=== PATIENT | female | born 1990 ===

== ENCOUNTER 2020-04-27 19:07 | Inpatient (IN) ==
[2020-04-27 20:42] LABS: Basophils # (auto) 0.01 K/uL (0-0.2); Basophils % (auto) 0.1 %; Eosinophils # (auto) 0.01 K/uL (0-0.5); Eosinophils % (auto) 0.1 %; Hematocrit (blood only) 32.1 % (37-47); Hemoglobin 10.8 g/dL (12.0-16.0); Immature Granulocytes # (auto) 0.18 K/uL (0.00-0.02); Immature Granulocytes % (auto) 1.4 %; Lymphocytes # (auto) 1.41 K/uL (1.2-3.4); Lymphocytes % (auto) 11.4 %; Mean Corpuscular Hemoglobin 30.3 pg (25-34); Mean Corpuscular Volume 89.9 fL (80-100); Mean Platelet Volume 11.3 fL (7.4-10.4); Monocytes # (auto) 0.18 K/uL (0.11-0.59); Monocytes % (auto) 1.4 %; Neutrophils # (auto) 10.63 K/uL (1.4-6.5); Neutrophils % (auto) 85.6 %; Platelet Count 216 K/uL (130-400); RDW Coefficient of Variation 12.1 % (11.5-14.5); RDW Standard Deviation 39.6 fL (36.4-46.3); Red Blood Count 3.57 M/uL (4.2-5.4); White Blood Count 12.42 K/uL (4.8-10.8)
[2020-04-27 21:02] LABS: Alanine Aminotransferase 21 U/L (12-78); Albumin Level 2.4 gm/dl (3.4-5.0); Alkaline Phosphatase 161 U/L (45-117); Aspartate Aminotransferase 20 U/L (15-37); Bilirubin Direct < 0.1 mg/dl (0-0.2); Bilirubin,Total 0.1 mg/dl (0.2-1)
[2020-04-27 21:26] LABS: Mean Corpuscular Hgb Conc 33.6 g/dL (32-36)
[2020-04-27] MEDS ORDERED: OXYTOCIN 30 UNITS/500 ML BAG IV PRN (21:29)
[2020-04-28] MEDS ORDERED: miSOPROStoL 50 MCG TAB PO SCH (05:00)
--- NOTE | 2020-04-28 09:24 | Obstetrical Progress Note ---
Date of Service April 28, 2020 Assessment & Plan Admission and Anticipated Discharge Date Admission Date: April 27, 2020 Subjective Met pt and reviewed PNC Preeclampsia, meeting severe criteria with BP, and headaches on admission' Pt has BMTZ series. Pt had discussion with DR Pryor discussed with pt again this morning Induction with pt Pt agrees with recommendation will start induction , labs ordered will add magnesium if pt becomes symptomatic Results & Data ([facility]) Vital Signs (Past 12 Hours) Vital Signs Temp Pulse Resp BP 04/28/20 08:47 57 L 160/90 H 04/28/20 07:47 64 165/95 H 04/28/20 07:10 71 136/86 04/28/20 06:47 59 L 155/86 H 04/28/20 05:47 54 L 150/86 H 04/28/20 04:47 63 133/86 04/28/20 03:48 57 L 135/82 04/28/20 03:38 36.9 C 16 04/28/20 03:35 16 04/28/20 02:47 83 145/81 H 04/28/20 01:47 67 136/80 04/28/20 01:14 67 147/79 H 04/28/20 01:09 67 161/103 H 04/28/20 00:47 57 L 181/104 H 04/27/20 23:47 67 140/78 04/27/20 23:10 36.6 C 62 18 142/92 H 04/27/20 22:47 70 158/101 H 04/27/20 21:34 66 135/81 04/27/20 21:24 64 142/83 H
[2020-04-28 09:34] LABS: Hematocrit (blood only) 36.1 % (37-47); Hemoglobin 12.1 g/dL (12.0-16.0); Mean Corpuscular Hemoglobin 30.6 pg (25-34); Mean Corpuscular Volume 91.2 fL (80-100); Mean Platelet Volume 11.4 fL (7.4-10.4); Nucleated RBC # (auto) 0.02 K/uL (0-0); Nucleated RBC % (auto) 0.1 %; Platelet Count 258 K/uL (130-400); RDW Coefficient of Variation 12.3 % (11.5-14.5); RDW Standard Deviation 41.1 fL (36.4-46.3); Red Blood Count 3.96 M/uL (4.2-5.4); White Blood Count 11.62 K/uL (4.8-10.8)
[2020-04-28 09:36] LABS: Mean Corpuscular Hgb Conc 33.5 g/dL (32-36)
[2020-04-28 09:56] LABS: Albumin Level 2.7 gm/dl (3.4-5.0); BUN Creatinine Ratio 16.9 (10-20); Calcium 8.9 mg/dl (8.5-10.1); Creatinine Clr Calc Pharmacy 110.5 ml/min; Est GFR (African American) 117.2; Est GFR (Non-African American) 101.2; Potassium 4.4 mmol/L (3.5-5.1)
[2020-04-28 09:59] LABS: Albumin Globulin Ratio 0.7 (0.9-2); Bilirubin,Total 0.2 mg/dl (0.2-1); Total Protein 6.7 gm/dl (6.4-8.2)
[2020-04-28] MEDS ORDERED: miSOPROStoL 50 MCG TAB ONE (10:33)
[2020-04-28] MEDS: miSOPROStoL 50 MCG TAB PO SCH ×3 (10:39→21:43)
[2020-04-28 11:10] LABS: Protein Creatinine Ratio Urine 2.6 (0-0.2); Total Protein Urine Random 455.2 mg/dl (0-11.9)
--- NOTE | 2020-04-28 13:34 | History and Physical Report ---
DATE OF ADMISSION: 04/27/2020 HISTORY OF PRESENT ILLNESS: The patient is a 30-year-old 1, para 0. General health is good. She is being followed by the [facility] for care and delivery. Her due date is 05/28/2020. She has been followed for elevated blood pressure for about the past 2-3 weeks. She was seen at [place] about a week ago for a growth scan, said the baby was symmetrical, but small. She has recently had Celestone, an injection on 04/26 and another injection on 04/27. She has followed her blood pressures at home. She called after having 2 consecutive high blood pressures associated with headaches, diastolics over 100. She was told to come into the hospital for evaluation. ALLERGIES: SHE IS ALLERGIC TO CIPRO. PAST SURGICAL HISTORY: She had wisdom teeth removed. She had a carpal tunnel syndrome. She has had kidney stones. SOCIAL HISTORY: She is not a smoker. She has no history of excessive alcohol intake. She works on a farm. FAMILY HISTORY: Her mom is 60, her health is unknown. Father is 60, had colon cancer. Has one brother in good health. REVIEW OF SYSTEMS: HEAD: No symptoms of frequent or severe headaches. EYES: No symptoms of blurred vision, double vision. EARS: No symptoms of frequent ear infection, difficulty hearing. PHYSICAL EXAMINATION: GENERAL: Well-developed, well-nourished, 30-year-old white female, alert, oriented x3 and cooperative, in no acute distress, appears her stated age. EYES: Conjunctivae are pink. Sclerae white, no evidence of jaundice. EARS: Had normal light reflex bilaterally. NOSE: Had normal mucosa. Septum is midline. There were no polyps. THROAT: No erythema or evidence of infection. Teeth are in good state of repair. HEART: Had regular rhythm. S1, S2 are normal. ABDOMEN: Soft and nontender, consistent with a 36-week size fetus. No CVA tenderness. MUSCULOSKELETAL: Revealed no calf tenderness. PELVIC: Vertex presentation well applied to the cervix. Cervix was soft, posterior 1.5 cm. Head was about a -2 station. IMPRESSIONS OF THIS CASE: Worsening toxemia of , status post wisdom teeth, status post carpal tunnel, status post kidney stones, intrauterine [address] [facility]
[2020-04-28] MEDS ORDERED: hydrALAZINE HCL 20 MG/ML VIAL IV STA (17:22)
[2020-04-28] MEDS ORDERED: PENICILLIN G POTASSIUM 6 MU in DEXTROSE 5% 250 ML IV ONE (17:45)
[2020-04-28] MEDS ORDERED: MAG SULFATE 4GM BOLUS FROM BAG IV ONE (17:45)
[2020-04-28] MEDS: MAGNESIUM SULFATE / WTR 40 GM/1,000 ML BAG IV SCH ×2 (17:53→18:25)
[2020-04-28] MEDS ORDERED: OXYTOCIN 30 UNITS/500 ML BAG IV PRN (18:06)
[2020-04-28 18:16] LABS: Hematocrit (blood only) 33.9 % (37-47); Hemoglobin 11.3 g/dL (12.0-16.0); Mean Corpuscular Hemoglobin 30.1 pg (25-34); Mean Corpuscular Volume 90.2 fL (80-100); Mean Platelet Volume 11.5 fL (7.4-10.4); Nucleated RBC # (auto) 0.04 K/uL (0-0); Nucleated RBC % (auto) 0.4 %; Platelet Count 240 K/uL (130-400); RDW Coefficient of Variation 12.3 % (11.5-14.5); Red Blood Count 3.76 M/uL (4.2-5.4); White Blood Count 10.05 K/uL (4.8-10.8)
[2020-04-28 18:17] LABS: Mean Corpuscular Hgb Conc 33.3 g/dL (32-36)
[2020-04-28] MEDS: LACTATED RINGER'S 1,000 ML IV PRN (18:25)
[2020-04-28 18:27] LABS: Albumin Level 2.5 gm/dl (3.4-5.0); BUN Creatinine Ratio 21.9 (10-20); Calcium 8.3 mg/dl (8.5-10.1); Creatinine Clr Calc Pharmacy 130.3 ml/min; Est GFR (African American) 137.7; Est GFR (Non-African American) 118.8
[2020-04-28 18:29] LABS: Albumin Globulin Ratio 0.7 (0.9-2); Bilirubin,Total 0.2 mg/dl (0.2-1); Globulin 3.8 gm/dl (2.5-4.0); Total Protein 6.3 gm/dl (6.4-8.2)
[2020-04-28] MEDS ORDERED: PENICILLIN G POTASSIUM 3 MU in DEXTROSE 5% 100 ML IV PRN (21:45)
[2020-04-28] MEDS: ACETAMINOPHEN 325 MG TAB PO PRN (21:57)
--- NOTE | 2020-04-28 23:26 | Obstetrical Progress Note ---
Date of Service April 28, 2020 Assessment & Plan Admission and Anticipated Discharge Date Admission Date: April 27, 2020 Subjective Pt doing well Severe Preeclampsia on Magnesium FHR; CAT1 Ctx 2-5mins PIt: 9MU VE; 4/50/-2 AROM with Amnio hook continue Pitocin augmentation Results & Data ([facility]) Vital Signs (Past 12 Hours) Vital Signs Temp Pulse Resp BP 04/28/20 23:09 77 133/80 04/28/20 23:00 18 04/28/20 22:39 76 129/79 04/28/20 22:09 70 134/82 04/28/20 22:00 20 04/28/20 21:39 79 136/90 04/28/20 21:09 81 134/85 04/28/20 21:00 18 04/28/20 20:39 77 134/86 04/28/20 20:10 79 144/91 H 04/28/20 20:00 18 04/28/20 19:42 18 04/28/20 19:39 77 134/81 04/28/20 19:30 36.5 C 18 04/28/20 19:10 78 147/85 H 04/28/20 19:09 106 H 145/102 H 04/28/20 18:49 85 143/90 H 04/28/20 18:34 74 139/86 04/28/20 18:30 36.6 C 79 20 144/87 H 04/28/20 18:24 85 142/90 H 04/28/20 18:19 86 137/93 04/28/20 18:14 80 137/81 04/28/20 18:09 74 139/82 04/28/20 18:04 97 H 142/89 H 04/28/20 17:58 75 142/89 H 04/28/20 17:55 70 149/95 H 04/28/20 17:52 70 149/93 H 04/28/20 17:49 71 155/99 H 04/28/20 17:46 70 146/93 H 04/28/20 17:43 70 150/95 H 04/28/20 17:40 63 153/94 H 04/28/20 17:35 62 171/102 H 04/28/20 17:18 58 L 182/92 H 04/28/20 17:14 87 20 158/118 H 04/28/20 17:08 76 169/102 H 04/28/20 16:38 59 L 16 171/96 H 04/28/20 16:08 61 152/94 H 04/28/20 15:38 56 L 150/93 H 04/28/20 15:08 58 L 159/94 H 04/28/20 15:00 36.8 C 20 04/28/20 14:38 64 169/92 H 04/28/20 14:23 67 16 139/90 04/28/20 13:46 63 173/93 H 04/28/20 13:38 65 185/102 H 04/28/20 13:08 60 182/97 H 04/28/20 12:38 64 163/89 H 04/28/20 12:08 69 143/91 H 04/28/20 11:38 84 20 136/87
[2020-04-29] MEDS ORDERED: ePHEDrine sulfate 50 MG/ML AMP ONE (00:15)
[2020-04-29] MEDS ORDERED: SODIUM CHLORIDE 0.9% INJ 10 ML VIAL ONE (00:15)
[2020-04-29] MEDS ORDERED: fentaNYL 2MCG/ML ROPIVACAINE 1.25MG/ML 100 ML BAG EPI ONE (00:16)
[2020-04-29] MEDS ORDERED: fentaNYL citrate 100 MCG/2 ML VIAL ONE (00:16)
[2020-04-29] MEDS ORDERED: BUPIVACAINE 0.25% 30 ML VIAL ONE (00:16)
[2020-04-29] MEDS ORDERED: NALOXONE HCL 1 MG in SODIUM CHLORIDE 0.9% 1000ML 1,000 ML IV PRN (00:24)
[2020-04-29] MEDS ORDERED: ONDANSETRON INJ 2 MG/ML 2 ML VIAL IV PRN (00:24)
[2020-04-29] MEDS ORDERED: ePHEDrine sulfate 50 MG/ML AMP IV PRN (00:24)
[2020-04-29] MEDS ORDERED: fentaNYL 2MCG/ML ROPIVACAINE 1.25MG/ML 100 ML BAG EPI PRN (00:24)
[2020-04-29] MEDS ORDERED: NALOXONE HCL 0.4 MG/1 ML VIAL/CARP IV PRN (00:24)
[2020-04-29] MEDS ORDERED: diphenhydrAMINE 50 MG/ML VIAL IV PRN (00:24)
--- NOTE | 2020-04-29 00:26 | Anesthesiology Consultation ---
Date of Service April 29, 2020 Assessment & Plan (1) Encounter for pre-operative examination: Chart Review Chart Review: Patient NOT seen in Pre Admission Testing and Acceptable Risk for Labor Epidural Consults Requested none History Height/Weight Height: 5 ft 5 in Weight: 81.1 kg Allergies Allergy/AdvReac Type Severity Reaction Status Date / Time ciprofloxacin [From Cipro] Allergy Hives Verified 04/27/20 20:40 shellfish derived Allergy Anaphylaxis Verified 04/28/20 09:07 Medications Home Medications Medication Instructions Recorded Confirmed Last Taken prenat.vits,chriss,qaz-pcmi-wovin 1 tab PO DAILY 04/27/20 04/27/20 04/26/20 21:00 [ Vitamin] Active Medications Generic Name Dose Route Start Last Admin Trade Name Freq PRN Reason Stop Dose Admin Acetaminophen 650 mg 04/28/20 21:33 04/28/20 21:57 Acetaminophen 325 Mg Tab PO 05/28/20 21:32 650 mg Q4H PRN Administration Headache or Pain Lactated Ringer's 1,000 mls @ 125 mls/hr 04/27/20 21:29 04/28/20 19:01 Lr IV 04/29/20 21:28 75 mls/hr .Q8H PRN Infusion L&D Protocol Protocol Penicillin G Potassium 3 mu/ 106 mls @ 100 mls/hr 04/28/20 21:45 04/28/20 23:36 Dextrose IV 05/08/20 21:44 100 mls/hr Q4H PRN Administration Give until delivery Magnesium Sulfate 40 gm in 1,000 mls @ 50 mls/hr 04/28/20 17:45 04/28/20 18:25 Magnesium Sulfate / Wtr IV 05/28/20 17:44 50 mls/hr .Q20H LAURIE Administration Oxytocin 30 units in 500 mls @ 8 mls/hr 04/28/20 18:06 04/28/20 22:00 Pitocin IV 05/28/20 18:05 0.48 units/hr .Q24H PRN 8 mls/hr Labor Induction/Augmentation Titration Protocol 0.48 UNITS/HR Misoprostol 50 mcg 04/28/20 12:00 04/28/20 21:43 Misoprostol 50 Mcg Tab PO 05/28/20 11:59 Not Given Q4 LAURIE Past Medical History Medical History Preeclampsia current Exercise / Class Metabolic Activity II 4-5 Yardwork/Stairs/Walk up hill Past Family History Family History Father Colon cancer Grandmother (Maternal) Ovarian cancer Past Surgical History Surgical History H/O lithotripsy 2014 History of carpal tunnel surgery 2013-left and 2019-right Past Anesthesia History No Hx of Anesthesia Complications and No Family Hx of Anesthesia Complications History of PONV No Hx of PONV and No Hx of Motion Sickness Social History Smoking Status: Never smoker Do You Dip or Chew Tobacco: No Hx Alcohol Use: No Hx Substance Use: No substance use type: does not use Physical Exam Vital Signs Last Vital Signs Temp 36.5 C 04/28/20 23:20 Pulse 86 04/29/20 00:50 Resp 18 04/29/20 00:30 BP 138/90 04/29/20 00:09 Pulse Ox 97 04/29/20 00:50 Testing Laboratory Results 04/28/20 17:43 04/28/20 17:43
[2020-04-29] MEDS: miSOPROStoL 50 MCG TAB PO SCH ×3 (01:30→07:25)
[2020-04-29] MEDS ORDERED: miSOPROStoL 200 MCG TAB PR ONE (02:26)
[2020-04-29] MEDS ORDERED: DIPHTHERIA/TETANUS/PERTUSSIS 0.5 ML SYR/VIAL IM ONE (02:26)
[2020-04-29] MEDS ORDERED: OXYTOCIN 30 UNITS/500 ML BAG IV PRN (02:26)
[2020-04-29] MEDS ORDERED: HYDROCORTISONE ACETATE 25 MG SUPP PR PRN (02:26)
[2020-04-29] MEDS ORDERED: ACETAMINOPHEN 325 MG TAB PO PRN (02:26)
[2020-04-29] MEDS ORDERED: SUPERCREAM 0.870% 15 GM JAR EXT PRN (02:26)
[2020-04-29] MEDS ORDERED: BENZOCAINE 20% AER SPR 82.5 GM CAN EXT PRN (02:26)
[2020-04-29] MEDS ORDERED: bisacodyL 10 MG SUPP PR PRN (02:26)
[2020-04-29] MEDS: IBUPROFEN 600 MG TAB PO PRN ×4 (03:06→23:47)
[2020-04-29] MEDS ORDERED: LABETALOL HCL 200 MG TAB PO SCH (03:55)
[2020-04-29 04:18] LABS: Base Excess Cord Venous Blood -1.4 mEq/L (-7.7-1.9); Cord Venous Blood HCO3 25 mmol/L (18.4-26.8); Cord Venous Blood PCO2 45 mmHg (30.4-57.2); Cord Venous Blood PO2 27 mmHg (14.1-43.3); Cord Venous Blood pH 7.35 (7.20-7.44)
[2020-04-29 04:19] LABS: O2 Saturation Cord Venous Bld < 60.0 % (<68)
[2020-04-29] MEDS: LACTATED RINGER'S 1,000 ML IV PRN (08:45)
[2020-04-29] MEDS: MAGNESIUM SULFATE / WTR 40 GM/1,000 ML BAG IV SCH (08:45)
[2020-04-29] MEDS: PRENATAL VITAMIN 1 TAB PO SCH (09:25)
[2020-04-29] MEDS: FERROUS SULFATE 325 MG TAB PO SCH (09:25)
[2020-04-29] MEDS: DOCUSATE SODIUM 100 MG CAP PO SCH ×2 (09:25→19:53)
--- NOTE | 2020-04-29 09:40 | Anesthesia Procedure Note ---
Date of Service April 29, 2020 Anesthesia Post Epidural Note Vital Signs Vital Signs: Temp Pulse Resp BP Pulse Ox 97.9 F 96 H 18 143/90 H 95 04/29/20 07:12 04/29/20 09:27 04/29/20 08:27 04/29/20 09:27 04/29/20 02:20 Pain Intensity Bilateral Episiotomy/Laceration: Pain Intensity: 1 Notes Mental Status: alert / awake / arousable and participated in evaluation Nausea / Vomiting: adequately controlled Pain: adequately controlled Airway Patency, RR, SpO2: stable & adequate BP & HR: stable & adequate Hydration State: stable & adequate Neuraxial Anesthesia: was administered and sensory block is resolving Anesthetic Complications: no major complications apparent and Pt Satisfied with anesthetic care Epidural: Removed without complications and With tip intact
[2020-04-29] MEDS: LABETALOL HCL 200 MG TAB PO SCH (17:25)
[2020-04-29 19:10] LABS: Hematocrit (blood only) 33.1 % (37-47); Hemoglobin 10.9 g/dL (12.0-16.0); Mean Corpuscular Hemoglobin 30.1 pg (25-34); Mean Corpuscular Hgb Conc 32.9 g/dL (32-36); Mean Corpuscular Volume 91.4 fL (80-100); Mean Platelet Volume 10.8 fL (7.4-10.4); Platelet Count 230 K/uL (130-400); RDW Coefficient of Variation 12.5 % (11.5-14.5); RDW Standard Deviation 42.1 fL (36.4-46.3); Red Blood Count 3.62 M/uL (4.2-5.4); White Blood Count 10.69 K/uL (4.8-10.8)
[2020-04-29 19:37] LABS: Creatinine Clr Calc Pharmacy 93.9 ml/min; Est GFR (African American) 96.3; Est GFR (Non-African American) 83.1; Potassium 4.1 mmol/L (3.5-5.1)
[2020-04-29 19:38] LABS: Albumin Globulin Ratio 0.6 (0.9-2); Albumin Level 2.1 gm/dl (3.4-5.0); Bilirubin,Total 0.2 mg/dl (0.2-1); Globulin 3.4 gm/dl (2.5-4.0); Total Protein 5.5 gm/dl (6.4-8.2)
[2020-04-30 05:25] VITALS: O2SAT 97
[2020-04-30] MEDS: LABETALOL HCL 200 MG TAB PO SCH ×3 (05:26→20:28)
[2020-04-30 05:58] LABS: Hematocrit (blood only) 35.9 % (37-47); Hemoglobin 11.7 g/dL (12.0-16.0); Mean Corpuscular Hemoglobin 30.2 pg (25-34); Mean Corpuscular Hgb Conc 32.6 g/dL (32-36); Mean Corpuscular Volume 92.8 fL (80-100); Mean Platelet Volume 10.7 fL (7.4-10.4); Platelet Count 237 K/uL (130-400); RDW Coefficient of Variation 12.6 % (11.5-14.5); RDW Standard Deviation 42.7 fL (36.4-46.3); Red Blood Count 3.87 M/uL (4.2-5.4); White Blood Count 10.76 K/uL (4.8-10.8)
[2020-04-30 06:16] LABS: Albumin Level 2.4 gm/dl (3.4-5.0); BUN Creatinine Ratio 18.4 (10-20); Calcium 7.6 mg/dl (8.5-10.1); Est GFR (African American) 119.1; Est GFR (Non-African American) 102.7; Potassium 4.7 mmol/L (3.5-5.1)
[2020-04-30 06:18] LABS: Albumin Globulin Ratio 0.6 (0.9-2); Bilirubin,Total 0.3 mg/dl (0.2-1); Globulin 3.8 gm/dl (2.5-4.0); Total Protein 6.2 gm/dl (6.4-8.2)
--- NOTE | 2020-04-30 08:00 | Delivery Summary ---
DATE OF OPERATION: 04/29/2020 The patient delivered a live infant female in right occiput anterior presentation. There was a loose nuchal cord which was easily reduced. was placed on mother's abdomen. Delayed cord clamp was performed. Cord blood and cord gases were obtained. 's weight is pending. Apgars 8 and 9. Placenta was spontaneously delivered. Inspection of the placenta shows a normal grossly looking placenta. The patient is and so placenta is sent to pathology for pathological analysis. Inspection of the perineum showed a first-degree laceration, which does not require any suturing. Estimated blood loss is 150 mL. All instruments were removed from the vagina and accounted for x2 including sponges and needles. Rectal exam post-delivery showed good sphincter tone. Baby and mother are recovering and are stable. I attest to the content of the Intraoperative Record and any orders documented therein. Any exception s are noted below.
[2020-04-30] MEDS: PRENATAL VITAMIN 1 TAB PO SCH (08:29)
[2020-04-30] MEDS: FERROUS SULFATE 325 MG TAB PO SCH (08:29)
[2020-04-30] MEDS: DOCUSATE SODIUM 100 MG CAP PO SCH ×2 (08:29→20:28)
[2020-04-30] MEDS: ACETAMINOPHEN 325 MG TAB PO PRN (08:57)
--- NOTE | 2020-04-30 10:26 | Obstetrical Progress Note ---
Date of Service April 30, 2020 Assessment & Plan Admission and Anticipated Discharge Date Admission Date: April 27, 2020 Subjective Patient is seen and examined. She feels well, no complaints, mild ROMERO , no change in vision, RUQ or epig pain Ambulating without dizziness Voiding without difficulty Tolerating regular diet with out N&V Bleeding is minimal No fever/ chills/ CP/ SOB/ N&V/ Leg pain Breast feeding without problems Vital Signs Temp Pulse Pulse Resp BP BP Pulse Ox 04/30/20 08:35 36.7 C 64 20 157/97 H 04/30/20 06:30 149/90 H 04/30/20 05:25 36.6 C 67 16 166/104 H 97 04/29/20 23:50 153/92 H 04/29/20 23:40 36.7 C 67 17 162/103 H 95 04/29/20 20:00 36.7 C 75 16 143/90 H 96 04/29/20 18:32 76 130/89 04/29/20 17:20 36.8 C 80 20 147/98 H 97 04/29/20 16:27 79 18 147/93 H 04/29/20 15:27 81 20 144/91 H 04/29/20 15:13 78 145/92 H 04/29/20 13:27 81 16 142/94 H 04/29/20 12:54 83 20 141/92 H 04/29/20 11:13 36.5 C 88 16 143/97 H 04/29/20 10:27 80 18 129/79 Intake and Output 04/29/20 04/30/20 04/30/20 22:59 06:59 14:59 Output Total 300 / 4900 Balance -300 / -2925.000 Output: Urine 300 / 300 PE: General: Alert, orientedx3, NAD Abd: soft, NT, fundus firm, below Umbilicus Perineum intact, Lochia rubra minimal Ext; NT, no edema, no clonus, DTR 06/22 AP: 30 yo s/p , ppd# 1 VSS Afebrile doing well On labetalol for HT, normal labs Tylenol for ROMERO Continue routine care All questions were answered D/C home tomorrow Results & Data ([place]) Vital Signs (Past 12 Hours) Vital Signs Temp Pulse Resp BP Pulse Ox 04/30/20 08:35 36.7 C 64 20 157/97 H 04/30/20 06:30 149/90 H 04/30/20 05:25 36.6 C 67 16 166/104 H 97 04/29/20 23:50 153/92 H 04/29/20 23:40 36.7 C 67 17 162/103 H 95
[2020-04-30] MEDS ORDERED: NIFEdipine EXTENDED REL 30 MG TABCR PO STA (15:00)
--- NOTE | 2020-04-30 15:41 | Obstetrical Progress Note ---
Date of Service April 30, 2020 Assessment & Plan Admission and Anticipated Discharge Date Admission Date: April 27, 2020 Subjective Patient feels better She slept for 2 hours No ROMERO/ Change in vision/ N&V/ epig or RUQ pain Breast feeding Started on Procardia XL and Labetalol 200 mg tid Will continue to monitor closely Results & Data ([facility]) Vital Signs (Past 12 Hours) Vital Signs Temp Pulse Resp BP Pulse Ox 04/30/20 12:30 152/94 H 04/30/20 10:55 82 154/94 H 04/30/20 08:35 36.7 C 64 20 157/97 H 04/30/20 06:30 149/90 H 04/30/20 05:25 36.6 C 67 16 166/104 H 97
[2020-04-30] MEDS: oxyCODONE/ACETAMINOPHEN 5mg/325mg TAB PO PRN (18:35)
[2020-04-30] MEDS ORDERED: bisacodyL 5 MG TABEC PO SCH (20:00)
[2020-05-01] MEDS: oxyCODONE/ACETAMINOPHEN 5mg/325mg TAB PO PRN (02:37)
--- NOTE | 2020-05-01 04:43 | Anesthesiology Progress Note ---
Date of Service May 01, 2020 Assessment & Plan (1) Encounter for pre-operative examination: Admission and Anticipated Discharge Date Admission Date: April 27, 2020 Subjective called by nursing as pt had headache. initial concern as pt had pre-E but now blood pressures normal and headache positional in nature. pt has tried fluids and caffeine and percocet without relief. Physical Exam Vital Signs: Last Vital Signs Temp 36.6 C 05/01/20 00:20 Pulse 83 05/01/20 00:20 Resp 18 05/01/20 00:20 BP 136/84 05/01/20 00:20 Pulse Ox 97 04/30/20 05:25 ENMT: Mouth: no TMJ abnormality and no dentition abnormality Mallampati Class: I Neck: normal visual inspection Respiratory: normal respiratory effort Auscultation: lungs clear to auscultation bilaterally Cardiovascular: Rate/Rhythm: regular rate and regular rhythm Musculoskeletal: Spine: normal cervical ROM and no pain with cervical ROM Neurologic: moves all extremities Psychiatric: Orientation: alert and oriented x 3 Results & Data ([facility]) Medications Administered Acetaminophen (Acetaminophen 325 Mg Tab) 650 mg PO Q4H PRN PRN Reason: Headache or Pain Stop: 05/28/20 21:32 Last Admin: 04/30/20 08:57 Dose: 650 mg Documented by: [id number] Admin: 04/28/20 21:57 Dose: 650 mg Documented by: [id number] Benzocaine (Benzocaine 20% Aer Spr 82.5 Gm Can) 1 appln EXT PRN PRN PRN Reason: Perineal Discomfort Stop: 05/29/20 02:25 Last Admin: 04/29/20 03:06 Dose: 82.5 appln Documented by: [id number] Docusate Sodium (Docusate Sodium 100 Mg Cap) 100 mg PO DAILY@ [facility] Stop: 05/29/20 07:59 Last Admin: 04/30/20 20:28 Dose: 100 mg Documented by: [id number] Admin: 04/30/20 08:29 Dose: 100 mg Documented by: [id number] Admin: 04/29/20 19:53 Dose: 100 mg Documented by: [id number] Admin: 04/29/20 09:25 Dose: 100 mg Documented by: [id number] Ferrous Sulfate (Ferrous Sulfate 325 Mg Tab) 325 mg PO DAILY@ [facility] Stop: 05/29/20 07:59 Last Admin: 04/30/20 08:29 Dose: 325 mg Documented by: [id number] Admin: 04/29/20 09:25 Dose: 325 mg Documented by: [id number] Magnesium Sulfate (Magnesium Sulfate / Wtr) 40 gm in 1,000 mls @ 50 mls/hr IV .Q20H LAURIE Stop: 05/28/20 17:44 Last Infusion: 04/29/20 14:41 Dose: 0 mls/hr Documented by: [id number] Cosigned by: [id number] Admin: 04/29/20 08:45 Dose: 50 mls/hr Documented by: [id number] Cosigned by: [id number] Infusion: 04/29/20 08:45 Dose: 50 mls/hr Documented by: [id number] Cosigned by: [id number] Infusion: 04/29/20 07:26 Dose: 50 mls/hr Documented by: [id number] Cosigned by: [id number] Infusion: 04/29/20 02:35 Dose: 50 mls/hr Documented by: [id number] Cosigned by: [id number] Infusion: 04/29/20 02:15 Dose: 0 mls/hr Documented by: [id number] Cosigned by: [id number] Admin: 04/28/20 18:25 Dose: 50 mls/hr Documented by: [id number] Cosigned by: [id number] Ibuprofen (Ibuprofen 600 Mg Tab) 600 mg PO Q4H PRN PRN Reason: Pain/ROMERO/Cramping/Fever Stop: 05/29/20 02:25 Last Admin: 04/29/20 23:47 Dose: 600 mg Documented by: [id number] Admin: 04/29/20 17:24 Dose: 600 mg Documented by: [id number] Admin: 04/29/20 12:54 Dose: 600 mg Documented by: [id number] Admin: 04/29/20 03:06 Dose: 600 mg Documented by: [id number] Labetalol HCl (Labetalol Hcl 200 Mg Tab) 200 mg PO TID LAURIE Stop: 05/30/20 11:29 Last Admin: 04/30/20 20:28 Dose: 200 mg Documented by: [id number] Admin: 04/30/20 11:32 Dose: 200 mg Documented by: [id number] Oxycodone/Acetaminophen (Oxycodone/Acetaminophen 5mg/325mg Tab) 1 tab PO Q4H PRN PRN Reason: Pain Stop: 05/14/20 11:21 Last Admin: 05/01/20 02:37 Dose: 1 tab Documented by: [id number] Admin: 04/30/20 18:35 Dose: 1 tab Documented by: [id number] Diamante Multivit/[place]/Iron/Folic Ac ( Vitamin 1 Tab) 1 tab PO DAILY@08 LAURIE Stop: 05/29/20 07:59 Last Admin: 04/30/20 08:29 Dose: 1 tab Documented by: [id number] Admin: 04/29/20 09:25 Dose: 1 tab Documented by: [id number]
--- NOTE | 2020-05-01 04:50 | Anesthesiology Progress Note ---
Date of Service May 01, 2020 Assessment & Plan (1) Encounter for pre-operative examination: Epidural Blood Patch Procedure Note Date and time of procedure: Consent: Informed consent obtained from the patient or designated proxy. The inherent risks, expected benefits, treatment alternatives, as well as the technical aspects of the procedure were discussed with the patient and a full explanation was given. Patient was given the opportunity to ask questions, which were answered to their satisfaction. Time Out: A time-out was performed verifying correct patient with two identifiers, procedure, site, positioning, and special equipment (if needed). Monitors Attached: EKG BP Pulse Oximetry Local Anesthetic: 2 ml 2% lidocaine Venous access site: Right antecubital vein Left antecubital vein Prep of venous access: Chloraprep sterile drape sterile procedures used Epidural placement site: Midline Level L[4-8] Prep of epidural site: Chlorhexidine Sterile Drape Sterile procedures used Procedure details: Prior to prepping, the patient was sitting on the edge of the bed. After local infiltration, a 17 gauge tuohy was advanced to the epidural space on the [1st] attempt using loss of resistance to air. [20]ml of autologous blood was removed using sterile technique by an assistant professor of anthropology from the venous access site. Autologous blood was injected into the epidural space, 5 ml at time with negative aspiration prior to each injection. A total of [20] ml of blood was injected into the epidural space. After injection, the tuohy was removed. Post Procedure: Pt hemodynamically stable throughout. Patient tolerated the procedure well without apparent complications. Patient was placed in the recumbent position for [60] minutes after the procedure. Patient reported improvement in post dural puncture headache symptoms after the procedure. Present on Admission?: No Admission and Anticipated Discharge Date Admission Date: April 27, 2020 Subjective pt with headache. initially thought to be due to pre-E but bp now normal and headache positional in nature. headache frontal and radiates to neck. headache better when supine. has tried fluids and caffeine without relief. Physical Exam Vital Signs: Last Vital Signs Temp 36.6 C 05/01/20 00:20 Pulse 83 05/01/20 00:20 Resp 18 05/01/20 00:20 BP 136/84 05/01/20 00:20 Pulse Ox 97 04/30/20 05:25 Results & Data ([facility]) Medications Administered Acetaminophen (Acetaminophen 325 Mg Tab) 650 mg PO Q4H PRN PRN Reason: Headache or Pain Stop: 05/28/20 21:32 Last Admin: 04/30/20 08:57 Dose: 650 mg Documented by: [id number] Admin: 04/28/20 21:57 Dose: 650 mg Documented by: [id number] Benzocaine (Benzocaine 20% Aer Spr 82.5 Gm Can) 1 appln EXT PRN PRN PRN Reason: Perineal Discomfort Stop: 05/29/20 02:25 Last Admin: 04/29/20 03:06 Dose: 82.5 appln Documented by: [id number] Docusate Sodium (Docusate Sodium 100 Mg Cap) 100 mg PO DAILY@ [facility] Stop: 05/29/20 07:59 Last Admin: 04/30/20 20:28 Dose: 100 mg Documented by: [id number] Admin: 04/30/20 08:29 Dose: 100 mg Documented by: [id number] Admin: 04/29/20 19:53 Dose: 100 mg Documented by: [id number] Admin: 04/29/20 09:25 Dose: 100 mg Documented by: [id number] Ferrous Sulfate (Ferrous Sulfate 325 Mg Tab) 325 mg PO DAILY@ [facility] Stop: 05/29/20 07:59 Last Admin: 04/30/20 08:29 Dose: 325 mg Documented by: [id number] Admin: 04/29/20 09:25 Dose: 325 mg Documented by: [id number] Magnesium Sulfate (Magnesium Sulfate / Wtr) 40 gm in 1,000 mls @ 50 mls/hr IV .Q20H [facility] Stop: 05/28/20 17:44 Last Infusion: 04/29/20 14:41 Dose: 0 mls/hr Documented by: [id number] Cosigned by: [id number] Admin: 04/29/20 08:45 Dose: 50 mls/hr Documented by: [id number] Cosigned by: [id number] Infusion: 04/29/20 08:45 Dose: 50 mls/hr Documented by: [id number] Cosigned by: [id number] Infusion: 04/29/20 07:26 Dose: 50 mls/hr Documented by: [id number] Cosigned by: [id number] Infusion: 04/29/20 02:35 Dose: 50 mls/hr Documented by: [id number] Cosigned by: [id number] Infusion: 04/29/20 02:15 Dose: 0 mls/hr Documented by: [id number] Cosigned by: [id number] Admin: 04/28/20 18:25 Dose: 50 mls/hr Documented by: [id number] Cosigned by: [id number] Ibuprofen (Ibuprofen 600 Mg Tab) 600 mg PO Q4H PRN PRN Reason: Pain/ROMERO/Cramping/Fever Stop: 05/29/20 02:25 Last Admin: 04/29/20 23:47 Dose: 600 mg Documented by: [id number] Admin: 04/29/20 17:24 Dose: 600 mg Documented by: [id number] Admin: 04/29/20 12:54 Dose: 600 mg Documented by: [id number] Admin: 04/29/20 03:06 Dose: 600 mg Documented by: [id number] Labetalol HCl (Labetalol Hcl 200 Mg Tab) 200 mg PO TID [facility] Stop: 05/30/20 11:29 Last Admin: 04/30/20 20:28 Dose: 200 mg Documented by: [id number] Admin: 04/30/20 11:32 Dose: 200 mg Documented by: [id number] Oxycodone/Acetaminophen (Oxycodone/Acetaminophen 5mg/325mg Tab) 1 tab PO Q4H PRN PRN Reason: Pain Stop: 05/14/20 11:21 Last Admin: 05/01/20 02:37 Dose: 1 tab Documented by: [id number] Admin: 04/30/20 18:35 Dose: 1 tab Documented by: [id number] Prenat Multivit/[place]/Iron/Folic Ac ( Vitamin 1 Tab) 1 tab PO DAILY@08 [facility] Stop: 05/29/20 07:59 Last Admin: 04/30/20 08:29 Dose: 1 tab Documented by: [id number] Admin: 04/29/20 09:25 Dose: 1 tab Documented by: [id number]
[2020-05-01 06:31] LABS: Hemoglobin 11.7 g/dL (12.0-16.0)
[2020-05-01] MEDS: FERROUS SULFATE 325 MG TAB PO SCH (08:28)
[2020-05-01] MEDS: DOCUSATE SODIUM 100 MG CAP PO SCH (08:28)
[2020-05-01] MEDS: PRENATAL VITAMIN 1 TAB PO SCH (08:28)
[2020-05-01] MEDS: LABETALOL HCL 200 MG TAB PO SCH ×2 (08:29→14:06)
[2020-05-01] MEDS ORDERED: NIFEdipine EXTENDED REL 30 MG TABCR PO SCH (09:00)
--- NOTE | 2020-05-01 12:37 | Obstetrical Progress Note ---
Date of Service May 01, 2020 Assessment & Plan (1) Normal course: PPD #2 Pt doing well s/p Preeclampsia; On labetalol and nifedipine stable Bp will d/c home on both meds 2. spinal headache- improved after blood patch Subjective Ambulation: ambulating normally Voiding: no voiding problems Passing Gas:: Yes Diet Tolerance:: regular diet Lochia:: Small Feeding Type:: breast feeding Review of Systems All systems reviewed & are unremarkable except as noted in HPI & below Physical Exam Constitutional WD/WN, vitals as above well developed and well nourished Eyes PERRL, conjunctivae normal, anicteric sclerae Neck trachea midline, no thyromegaly Respiratory normal respiratory effort, lungs clear to auscultation Auscultation: no crackles, no rales and no wheezes Cardiovascular RRR, no murmur, no edema Gastrointestinal (Abdomen) normal bowel sounds, soft, nontender, no hepatosplenomegaly Uterus is below umbilicus Musculoskeletal no cyanosis or clubbing, extremities motor strength 5/5 Skin no rashes, warm and dry Neurologic patellar DTR's 2+ bilat, sensation intact Psychiatric A+Ox3, euthymic affect Genitourinary normal external appearance Results & Data ([facility]) Vital Signs (Past 12 Hours) Vital Signs Temp Pulse Resp BP Pulse Ox 05/01/20 11:30 37 C 81 20 133/85 97 05/01/20 08:00 36.6 C 81 18 152/93 H 97
[2020-05-01 16:05] VITALS: BP 126/77; PULSE 88; TEMP 98.4
== END 2020-05-01 18:05 | disposition home or self-care (01) | DRG 807 ==
LOC: OPB 19:07 → 4S1 19:11 → 4S2 04-29 17:32
DX: O69.81X1 Labor and delivery complicated by cord around neck, without compression, fetus 1; O89.4 Spinal and epidural anesthesia-induced headache during the puerperium; Z3A.35 35 weeks gestation of pregnancy; O14.14 Severe pre-eclampsia complicating childbirth; Z37.0 Single live birth; O70.0 First degree perineal laceration during delivery; O60.14X1 Preterm labor third trimester with preterm delivery third trimester, fetus 1